=== PATIENT | female | born 1955 | race Caucasian/White ===

== ENCOUNTER 2018-08-18 14:18 | Outpatient (CLI) | payer OTHER | END 2018-08-18 21:25 | disposition home or self-care (01) | LOC: SCA 14:18 | DX: Z01.810 Encounter for preprocedural cardiovascular examination (principal); M72.0 Palmar fascial fibromatosis [Dupuytren] | CPT/HCPCS: 93005 ==

== ENCOUNTER 2019-07-29 10:57 | Emergency (ER) | payer OTHER ==
[~2019-07-29] VITALS: Ht 175.3 cm; Wt 102.1 kg
[2019-07-29 11:09] VITALS: BP_SYST 124
--- NOTE | 2019-07-29 11:12 | NUR ---
Patient to ER bed 04 to gown for evaluation. Side rails up.
--- NOTE | 2019-07-29 11:14 | NUR ---
ER Dr. Calvillo at bedside examining patient.
--- NOTE | 2019-07-29 11:30 | NUR ---
Patient presented to ER with C/o head ache x1 month. A&Ox4, ambulatory to ER, afebrile, arrived with , nausea present, emesisx1 today, denies diarrhea, pain 10/10. Patient states headache has been on-going fopr 1 month, patient reports history of migraines.
[2019-07-29] MEDS ORDERED: DIPHENHYDRAMINE INJ 50 MG/ML VIAL IVP ONE (12:30)
[2019-07-29] MEDS ORDERED: NACL 0.9% 1,000 ML IV ONE (12:30)
[2019-07-29] MEDS ORDERED: PROCHLORPERAZINE EDISYLATE 10 MG/2 ML VIAL IVP ONE (12:30)
[2019-07-29] MEDS ORDERED: DIPHENHYDRAMINE INJ 50 MG/ML VIAL ONE (12:51)
[2019-07-29] MEDS ORDERED: PROCHLORPERAZINE EDISYLATE 10 MG/2 ML VIAL ONE (12:52)
[2019-07-29] MEDS ORDERED: fentaNYL CITRATE/PF 100 MCG/2 ML AMP IVP ONE (13:30)
[2019-07-29 14:42] VITALS: BP_SYST 104
--- NOTE | 2019-07-29 14:42 | NUR ---
Patient given written and verbal discharge instructions and verbalizes understanding. ER MD discussed with patient the results and treatment provided. Patient in stable condition. ID arm band removed. IV catheter removed intact and dressing applied, no active bleeding. No Rx given. Patient educated on pain management and to follow up with PMD. Pain Scale2/10 tolerable for patient . Opportunity for questions provided and answered. Medication side effect fact sheet provided.
== END 2019-07-29 14:42 | disposition home or self-care (01) ==
LOC: SED 10:57
DX: G43.909 Migraine, unspecified, not intractable, without status migrainosus (principal); Z88.0 Allergy status to penicillin; Z88.1 Allergy status to other antibiotic agents; Z88.8 Allergy status to other drugs, medicaments and biological substances; Z91.013 Allergy to seafood
CPT/HCPCS: 96361; 96374; 96375; 99283; J0780; J1200; J3010; J7030

== ENCOUNTER 2022-10-29 07:27 | Day surgery (SDC) | payer OTHER ==
[~2022-10-29] VITALS: Ht 175.3 cm; Wt 109.6 kg
[2022-10-29 08:02] LABS: BASOPHILS % (AUTO) 0.5 % (0.0-2.0); EOSINOPHILS # (AUTO) 0.4 K/uL (0.0-0.4); EOSINOPHILS % (AUTO) 6.4 % (0.0-4.0); HEMATOCRIT 37.1 % (36-48); HEMOGLOBIN 12.5 g/dL (12.0-16.0); LYMPHOCYTES # (AUTO) 1.6 K/uL (1.0-5.5); LYMPHOCYTES % (AUTO) 22.6 % (20.5-51.5); MEAN CORPUSCULAR HEMOGLOBIN 31 pg (27-31); MEAN CORPUSCULAR HGB CONC 34 % (32-36); MEAN CORPUSCULAR VOLUME 92 fL (79.0-98.0); MONOCYTES # (AUTO) 0.7 K/uL (0.0-1.0); MONOCYTES % (AUTO) 9.8 % (1.7-9.3); NEUTROPHILS # (AUTO) 4.2 K/uL (1.8-7.7); NEUTROPHILS % (AUTO) 60.7 % (40.0-70.0); PLATELET COUNT (AUTO) 229 K/uL (130-430); RED BLOOD CELL COUNT(AUTO) 4.02 MIL/uL (4.2-6.2); WHITE BLOOD COUNT (AUTO) 6.9 K/uL (4.8-10.8)
[2022-10-29 08:16] LABS: CALCIUM 8.7 mg/dL (8.4-11.0); CREATININE 0.73 mg/dL (0.55-1.30)
[2022-10-29 08:19] LABS: INR 0.9 (0.8-1.2); PROTHROMBIN TIME 9.7 SECS (9.5-12.5)
[2022-10-29] MEDS ORDERED: METOCLOPRAMIDE HCL 10 MG/2 ML VIAL IVP ONE (10:15)
[2022-10-29] MEDS ORDERED: HYDROmorphone 2 MG/ML VIAL IVP ONE (10:15)
[2022-10-29] MEDS ORDERED: SUCCINYLCHOLINE CHLORIDE 20 MG/ML(QUELICIN) IVP ONE (10:15)
[2022-10-29] MEDS ORDERED: NS IRRIG SOLN 1000 ML IR ONE (10:15)
[2022-10-29] MEDS ORDERED: ePHEDrine sulfate 50 MG/ML VIAL IVP ONE (10:15)
[2022-10-29] MEDS ORDERED: ONDANSETRON HCL 4 MG/2 ML VIAL IVP ONE (10:15)
[2022-10-29] MEDS ORDERED: PROPOFOL 200MG/ 20ML VIAL (DIPRIVAN) IV ONE (10:15)
[2022-10-29] MEDS ORDERED: LR 1,000 ML IV.SOLN IV ONE (10:15)
[2022-10-29] MEDS ORDERED: DEXTROSE 50% JECT 50 ML DISP.SYRIN IVP ONE (10:15)
[2022-10-29] MEDS ORDERED: BUPIVACAINE /EPINEPHRINE/PF 0.25% 30 ML VIAL INJ ONE (10:15)
[2022-10-29] MEDS ORDERED: SEVOFLURANE 15 MIN GAS INH ONE (10:15)
[2022-10-29] MEDS ORDERED: CLINDAMYCIN PHOSPHATE 900 mg/50mL D5W IV ONE (10:15)
[2022-10-29 10:43] LABS: BILIRUBIN,URINE NEGATIVE (NEGATIVE); BLOOD, URINE NEGATIVE (NEGATIVE); CLARITY/URINE CLEAR (CLEAR); COLOR,URINE YELLOW (YELLOW); GLUCOSE,URINE NEGATIVE (NEGATIVE); KETONES,URINE NEGATIVE (NEGATIVE); LEUKOCYTE ESTERASE ,URINE NEGATIVE (NEGATIVE); NITRITE, URINE NEGATIVE (NEGATIVE); PH,URINE 6.5 (5.0-8.0); PROTEIN URINE NEGATIVE (NEGATIVE); UROBILINOGEN,URINE 0.2 (0.2-1.0)
[2022-10-29] MEDS ORDERED: MORPHINE 4 MG INJ. 4 MG/ML VIAL IVP PRN ×3 (12:15)
[2022-10-29] MEDS ORDERED: ONDANSETRON HCL 4 MG/2 ML VIAL IVP PRN (12:15)
[2022-10-29] MEDS ORDERED: METOCLOPRAMIDE HCL 10 MG/2 ML VIAL IVP PRN (12:15)
[2022-10-29] MEDS ORDERED: KETOROLAC TROMETHAMINE 30 MG VIAL IVP PRN (12:15)
[2022-10-29] MEDS ORDERED: PERC10 PO ×3 (12:32→14:35)
[2022-10-29] MEDS ORDERED: OXYCODONE/ACETAMINOPHEN 5-325 TABLET ONE (14:18)
[2022-10-29 15:38] VITALS: BP_SYST 164
== END 2022-10-29 15:25 | disposition home or self-care (01) ==
LOC: SDS 07:27
PROVIDERS: ATTEND Orthopaedic Surgery Sports Medicine
DX: S52.571A Other intraarticular fracture of lower end of right radius, initial encounter for closed fracture (principal); K21.9 Gastro-esophageal reflux disease without esophagitis; E66.01 Morbid (severe) obesity due to excess calories; G47.33 Obstructive sleep apnea (adult) (pediatric); M79.7 Fibromyalgia; Z88.0 Allergy status to penicillin; Z79.01 Long term (current) use of anticoagulants; Z79.899 Other long term (current) drug therapy; W19.XXXA Unspecified fall, initial encounter; Y93.89 Activity, other specified; Y92.89 Other specified places as the place of occurrence of the external cause; Y99.8 Other external cause status; Z20.822 Contact with and (suspected) exposure to COVID-19
CPT/HCPCS: 25608; 80048; 85025; 85610; 85730; 36415; 71046; 76000; 81003; 87426; J3490 ×2; J2765; J2405; J2704; J0330; J1170; J2270; J7120; A4565; C1769; C1713 ×6